=== PATIENT | female | born 1975 | race Caucasian/White ===

== ENCOUNTER 2018-11-30 16:01 | Emergency (ER) | payer OTHER ==
[2018-11-30] MEDS ORDERED: methylPREDNISolone Sodium Succinate 125 MG/2 ML SDV IM ONE (16:32)
[2018-11-30] MEDS ORDERED: Albuterol/Ipratropium 3.0-0.5 MG/3 ML Neb Soln NEB ONE (16:32)
--- NOTE | 2018-11-30 16:46 | EDM.PDOC ---
ED HPI GENERAL MEDICAL PROBLEM - General Chief Complaint: Respiratory Problem Stated Complaint: COUGH Time Seen by Provider: 11/30/18 16:11 Source of Information: Reports: Patient History Limitations: Reports: No Limitations - History of Present Illness INITIAL COMMENTS - FREE TEXT/NARRATIVE: HISTORY AND PHYSICAL: History of present illness: Patient is a 43-year-old female who presents to the ED today with concern of cough 1 week. Patient states she does feel as if she is been having fevers and chills off-and-on but has not checked a temperature at home. Patient states she does smoke about a pack a day and has so for 20-30 years. Patient states the cough has been dry and she has not coughed up any substances. Patient denies any other symptoms or concerns. Patient denies any health history. Patient denies fever, chills, chest pain, shortness of breath. Denies headache, neck stiff ness, change in vision, syncope, or near syncope. Denies nausea, vomiting, abdominal pain, diarrhea, constipation, or dysuria. Has not noted any blood in urine or stool. Patient has been eating and drinking appropriately. Review of systems: As per history of present illness and below otherwise all systems reviewed and negative. Past medical history: As per history of present illness and as reviewed below otherwise noncontributory. Surgical history: As per history of present illness and as reviewed below otherwise noncontributory. Social history: See social history for further information Family history: As per history of present illness and as reviewed below otherwise noncontributory. Physical exam: General: Patient is alert, oriented, and in no acute distress. Patient sitting comfortably on exam table. HEENT: Atraumatic, normocephalic, pupils equal and reactive bilaterally, negative for conjunctival pallor or scleral icterus, mucous membranes moist, TMs normal bilaterally, throat clear, neck supple, nontender, trachea midline. No drooling or trismus noted. No meningeal signs. No hot potato voice noted. Lungs: Diffuse wheezing to auscultation throughout all lung pena, breath sounds equal bilaterally, chest nontender. Dry cough elicited on exam. Heart: S1S2, regular rate and rhythm without overt murmur Abdomen: Soft, nondistended, nontender. Negative for masses or hepatosplenomegaly. Negative for costovertebral tenderness. Pelvis: Stable nontender. Genitourinary: Deferred. Rectal: Deferred. Skin: Intact, warm, dry. No lesions or rashes noted. Extremities: Atraumatic, negative for cords or calf pain. Neurovascular unremarkable. Neuro: Awake, alert, oriented. Cranial nerves II through XII unremarkable. Cerebellum unremarkable. Motor and sensory unremarkable throughout. Exam nonfocal. Notes: Discussed the importance for follow-up with a primary care provider. Voices understanding and is agreeable to plan of care. Denies any further questions or concerns at this time. Diagnostics: CBC, CMP, troponin, UA, EKG, chest x-ray, influenza, Therapeutics: DuoNeb, Solu-Medrol Prescription: Medrol dose pack, Proair inhaler, DuoNeb, Macrobid Impression: Cough with wheezing Urinary Tract infection Cigarette smoker Plan: 1. Take medication as prescribed. You can alternate ibuprofen and Tylenol as checked her for pain and discomfort 2. Follow-up with your primary care provider as discussed. Return to the ED as needed and as discussed. Definitive disposition and diagnosis as appropriate pending reevaluation and review of above. Head Pain Score (Numeric/FACES): 8 - Related Data Allergies Allergy/AdvReac Type Severity Reaction Status Date / Time No Known Allergies Allergy Verified 11/30/18 16:16 Home Meds: Home Meds . [No Known Home Meds] 11/30/18 [History] Past Medical History - Past Health History Medical/Surgical History: Denies Medical/Surgical History - Infectious Disease History Infectious Disease History: Reports: None Social & Family History - Family History Family Medical History: Noncontributory - Tobacco Use Smoking Status *Q: Current Every Day Smoker Years of Tobacco use: 30 Packs/Tins Daily: 0.5 - Caffeine Use Caffeine Use: Reports: Coffee - Recreational Drug Use Recreational Drug Use: Yes Recreational Drug Type: Reports: Marijuana/Hashish Recreational Drug Use Frequency: Socially ED ROS GENERAL - Review of Systems Review Of Systems: ROS reveals no pertinent complaints other than HPI. ED EXAM, GENERAL - Physical Exam Exam: See Below (See dictation) Course - Vital Signs Last Recorded V/S: Last Vital Signs Temp 97.9 F 11/30/18 16:17 Pulse 117 H 11/30/18 16:17 Resp 18 11/30/18 16:17 BP 148/106 H 11/30/18 16:17 Pulse Ox 98 11/30/18 16:17 - Orders/Labs/Meds Orders: Active Orders 24 hr Category Date Time Status EKG Documentation Completion [RC] STAT Care 11/30/18 16:32 Active RT Aerosol Therapy [RC] ASDIRECTED Care 11/30/18 16:32 Active CULTURE URINE [RM] Stat Lab 11/30/18 17:20 Received Labs: Laboratory Tests 11/30/18 11/30/18 11/30/18 Range/Units 17:00 17:00 17:20 WBC 10.79 (4.0-11.0) K/uL RBC 4.26 L (4.30-5.90) M/uL Hgb 13.1 (12.0-16.0) g/dL Hct 38.7 (36.0-46.0) % MCV 90.8 (80.0-98.0) fL MCH 30.8 (27.0-32.0) pg MCHC 33.9 (31.0-37.0) g/dL RDW Std Deviation 48.1 (28.0-62.0) fl RDW Coeff of Roscoe 15 (11.0-15.0) % Plt Count 354 (150-400) K/uL MPV 10.30 (7.40-12.00) fL Neut % (Auto) 67.2 (48.0-80.0) % Lymph % (Auto) 26.8 (16.0-40.0) % Dent % (Auto) 5.2 (0.0-15.0) % Eos % (Auto) 0.6 (0.0-7.0) % Baso % (Auto) 0.2 (0.0-1.5) % Neut # (Auto) 7.3 H (1.4-5.7) K/uL Lymph # (Auto) 2.9 H (0.6-2.4) K/uL Dent # (Auto) 0.6 (0.0-0.8) K/uL Eos # (Auto) 0.1 (0.0-0.7) K/uL Baso # (Auto) 0.0 (0.0-0.1) K/uL Nucleated RBC % 0.0 /100WBC Nucleated RBCs # 0 K/uL Sodium 141 (136-145) mmol/L Potassium 3.5 (3.5-5.1) mmol/L Chloride 106 (98-107) mmol/L Carbon Dioxide 21.5 (21.0-32.0) mmol/L BUN 11 (7.0-18.0) mg/dL Creatinine 0.7 (0.6-1.0) mg/dL Est Cr Clr Drug Dosing 98.01 mL/min Estimated GFR (MDRD) > 60.0 ml/min Glucose 116 H (74-106) mg/dL Calcium 9.0 (8.5-10.1) mg/dL Total Bilirubin 0.4 (0.2-1.0) mg/dL AST 12 L (15-37) IU/L ALT 18 (14-63) IU/L Alkaline Phosphatase 83 (46-116) U/L Troponin I < 0.050 (0.000-0.056) ng/mL Total Protein 7.9 (6.4-8.2) g/dL Albumin 3.4 (3.4-5.0) g/dL Globulin 4.5 H (2.6-4.0) g/dL Albumin/Globulin Ratio 0.8 L (0.9-1.6) Urine Color YELLOW Urine Appearance HAZY Urine pH 5.5 (5.0-8.0) Ur Specific Cades >= 1.030 (1.001-1.035) Urine Protein TRACE H (NEGATIVE) mg/dL Urine Glucose (UA) NEGATIVE (NEGATIVE) mg/dL Urine Ketones 15 H (NEGATIVE) mg/dL Urine Occult Blood NEGATIVE (NEGATIVE) Urine Nitrite NEGATIVE (NEGATIVE) Urine Bilirubin SMALL H (NEGATIVE) Urine Ictotest NEGATIVE Urine Urobilinogen 0.2 (<2.0) EU/dL Ur Leukocyte Esterase TRACE H (NEGATIVE) Urine RBC 0-2 (0-2/HPF) Urine WBC 8-10 (0-5/HPF) Ur Epithelial Cells MANY (NONE-FEW) Calcium Oxalate Crystal FEW (NEGATIVE) Urine Bacteria FEW (NEGATIVE) Urine Mucus MODERATE (NONE-MOD) Meds: Medications Discontinued Medications Generic Name Dose Route Start Last Admin Trade Name Freq PRN Reason Stop Dose Admin Albuterol/Ipratropium 3 ml 11/30/18 16:32 11/30/18 17:06 Duoneb 3.0-0.5 Mg/3 Ml NEB 11/30/18 16:33 3 ml ONETIME ONE Administration Methylprednisolone Sodium Succinate 125 mg 11/30/18 16:32 11/30/18 17:24 Solu-Medrol IM 11/30/18 16:33 125 mg ONETIME ONE Administration Departure - Departure Time of Disposition: 18:09 Disposition: Home, Self-Care 01 Clinical Impression: Cough, Wheezing, Cigarette smoker Urinary tract infection Qualifiers: Urinary tract infection type: acute cystitis Hematuria presence: with hematuria Qualified Code(s): N30.01 - Acute cystitis with hematuria - Discharge Information Referrals: PCP,None [Primary Care Provider] - Forms: ED Department Discharge Additional Instructions: The following information is given to patients seen in the emergency department who are being discharged to home. This information is to outline your options for follow-up care. We provide all patients seen in our emergency department with a follow-up referral. The need for follow-up, as well as the timing and circumstances, are variable depending upon the specifics of your emergency department visit. If you don't have a primary care physician on staff, we will provide you with a referral. We always advise you to contact your personal physician following an emergency department visit to inform them of the circumstance of the visit and for follow-up with them and/or the need for any referrals to a consulting specialist. The emergency department will also refer you to a specialist when appropriate. This referral assures that you have the opportunity for follow-up care with a specialist. All of these measure are taken in an effort to provide you with optimal care, which includes your follow-up. Under all circumstances we always encourage you to contact your private physician who remains a resource for coordinating your care. When calling for follow-up care, please make the office aware that this follow-up is from your recent emergency room visit. If for any reason you are refused follow-up, please contact the [facility] Emergency Department at and asked to speak to the emergency department charge nurse. [facility] [address] [place] [id number] [address] 1. Take medication as prescribed. You can alternate ibuprofen and Tylenol as checked her for pain and discomfort 2. Follow-up with your primary care provider as discussed. Return to the ED as needed and as discussed. - My Orders Last 24 Hours: My Active Orders 11/30/18 16:32 EKG Documentation Completion [RC] STAT RT Aerosol Therapy [RC] ASDIRECTED 11/30/18 17:20 CULTURE URINE [RM] Stat - Assessment/Plan Last 24 Hours: My Active Orders 11/30/18 16:32 EKG Documentation Completion [RC] STAT RT Aerosol Therapy [RC] ASDIRECTED 11/30/18 17:20 CULTURE URINE [RM] Stat
--- NOTE | 2018-11-30 17:26 | CR ---
INDICATION: Cough x 1 wk, h/o smoking. TECHNIQUE: Chest 2 views. COMPARISON: None. FINDINGS: Cardiovascular and mediastinum: Heart size and vasculature are normal in caliber and appearance. Mediastinum is within normal limits. Lungs and pleural spaces: Lungs are clear. No sign of infiltrate or mass. No sign of pleural effusion. No pneumothorax. Bones and soft tissues: No significant findings. IMPRESSION: Unremarkable chest. Dictated by: Robbie Doherty MD @ 11/30/2018 17:24:20 (Electronically Signed)
[2018-11-30 17:56] LABS: BLOOD UREA NITROGEN,BUN 11 mg/dL (7.0-18.0); CARBON DIOXIDE,CO2 21.5 mmol/L (21.0-32.0); CHLORIDE,CL 106 mmol/L (98-107); GLUCOSE RANDOM 116 mg/dL (74-106); POTASSIUM,K 3.5 mmol/L (3.5-5.1); SODIUM,NA 141 mmol/L (136-145)
== END 2018-11-30 18:30 | disposition home or self-care (01) ==
LOC: MW.ED 16:01
DX: R06.2 Wheezing (principal); R05 Cough; N39.0 Urinary tract infection, site not specified; F17.210 Nicotine dependence, cigarettes, uncomplicated
CPT/HCPCS: 36415; 71046; 80053; 81001; 84484; 85025; 87086; 87804; 93005; 94640; 96372; 99284; J2930; J7620-GY

== ENCOUNTER 2019-06-10 02:59 | Emergency (ER) | payer OTHER ==
--- NOTE | 2019-06-10 03:12 | EDM.PDOC ---
ED [facility] GENERAL MEDICAL PROBLEM - General Chief Complaint: Lower Extremity Injury/Pain Stated Complaint: RT LEG HURTS Time Seen by Provider: 06/10/19 03:10 Source of Information: Reports: Patient History Limitations: Reports: No Limitations - History of Present Illness INITIAL COMMENTS - FREE TEXT/NARRATIVE: Patient is 44-year-old female with past medical history of smoking presenting with a chief complaint of left hip pain. Patient states that she was wrestling with her significant other prior to arrival when she felt a pop and had immediate pain to her left hip. Pain does not radiate. Pain is made worse with attempts to move. Patient received 100 mcg of fentanyl from EMS without any improvement in pain. Patient denies any other injuries. Patient denies any drugs or alcohol tonight. Pmhx: None Pshx: None Family Hx: noncontributory Smoking history? Yes Etoh use? none Drug use? none Conference review of systems performed and otherwise negative as per HPI I have reviewed the triage vital signs Const: Well nourished, well developed, appears stated age Eyes: PERRL, no conjunctival injection HENT: NCAT, Neck supple without meningismus CV: RRR, Warm, well-perfused extremities RESP: CTAB, Unlabored respiratory effort GI: soft, non-tender, non-distended, no masses MSK: Left lower extremity is externally rotated and slightly shortened. No gross deformities appreciated Skin: Warm, dry. No rashes Neuro: Alert, pony edger II-XII grossly intact. Sensation and motor function of extremities grossly intact. Psych: Appropriate mood and affect Assessment and plan: Patient 44-year-old female presenting with left-sided hip pain status post injury. On x-ray patient had evidence of an anterior hip dislocation. No evidence of fracture on x-ray. No other injuries noted on physical exam. Patient was neurovascularly intact pre-and post procedure. Patient had successful reduction of her hip in the emergency department. Patient was placed in a knee immobilizer and given orthopedic follow-up. No immediate complications. All questions addressed and answered. Patient agrees with plan. Procedure note: Dislocation reduction Indication: Hip dislocation Senior Electronics Engineer: Dr. Melton Location: Left hip Indications, risks, and benefits explained to patient and informed consent obtained. Pre-procedure neurovascular exam: Intact A time out was performed. Procedural sedation was used and once patient was appropriately sedated, the patient was placed in the supine position. Patient's hip was flexed to 90 degrees and abduction force was applied until hip was successfully reduced. Palpable clunk was felt on first attempt. Patient was placed immediately in a knee immobilizer Post procedure neurovascular exam: Intact The patient tolerated the procedure well with no immediate complications Left Hip Pain Score (Numeric/FACES): 10 - Related Data Allergies Allergy/AdvReac Type Severity Reaction Status Date / Time No Known Allergies Allergy Verified 06/10/19 03:09 Home Meds: Home Meds . [No Known Home Meds] 11/30/18 [History] Past Medical History - Past Health History Medical/Surgical History: Denies Medical/Surgical History - Infectious Disease History Infectious Disease History: Reports: None Social & Family History - Family History Family Medical History: Noncontributory - Tobacco Use Smoking Status *Q: Current Every Day Smoker Years of Tobacco use: 25 Packs/Tins Daily: 1 - Caffeine Use Caffeine Use: Reports: Coffee - Recreational Drug Use Recreational Drug Use: Yes Drug Use in Last 12 Months: Yes Recreational Drug Type: Reports: Marijuana/Hashish Recreational Drug Use Frequency: Socially Review of Systems - Review of Systems Review Of Systems: See Below ED EXAM, GENERAL - Physical Exam Exam: See Below Course - Vital Signs Last Recorded V/S: Last Vital Signs Temp 36.0 C L 06/10/19 03:07 Pulse 69 06/10/19 03:59 Resp 17 06/10/19 03:59 BP 142/93 H 06/10/19 03:59 Pulse Ox 100 06/10/19 03:59 - Orders/Labs/Meds Orders: Active Orders 24 hr Category Date Time Status Immobilizer [RC] ASDIRECTED Care 06/10/19 04:19 Active Hip Min 1V Lt [CR] Stat Exams 06/10/19 04:18 Taken Hip Min 2V or 3V w Pelvis Lt [CR] Stat Exams 06/10/19 03:09 Taken DME for Prescription [COMM] Stat Oth 06/10/19 04:42 Ordered Meds: Medications Discontinued Medications Generic Name Dose Route Start Last Admin Trade Name Freq PRN Reason Stop Dose Admin Ketorolac Tromethamine 15 mg 06/10/19 03:40 06/10/19 03:47 Toradol IVPUSH 06/10/19 03:41 15 mg ONETIME ONE Administration Morphine Sulfate 6 mg 06/10/19 03:40 06/10/19 03:48 Morphine IVPUSH 06/10/19 03:41 6 mg ONETIME ONE Administration Ondansetron HCl 4 mg 06/10/19 03:40 06/10/19 03:45 Zofran IVPUSH 06/10/19 03:41 4 mg ONETIME ONE Administration Propofol Confirm 06/10/19 04:05 Diprivan 20 Ml Administered 06/10/19 04:06 Dose 200 mg .ROUTE .STK-MED ONE Departure - Departure Time of Disposition: 04:43 Disposition: Home, Self-Care 01 Clinical Impression: Hip dislocation, left - Discharge Information Instructions: Hip Dislocation Referrals: PCP,None [Primary Care Provider] - Forms: ED Department Discharge Additional Instructions: The following information is given to patients seen in the emergency department who are being discharged to home. This information is to outline your options for follow-up care. We provide all patients seen in our emergency department with a follow-up referral. The need for follow-up, as well as the timing and circumstances, are variable depending upon the specifics of your emergency department visit. If you don't have a primary care physician on staff, we will provide you with a referral. We always advise you to contact your personal physician following an emergency department visit to inform them of the circumstance of the visit and for follow-up with them and/or the need for any referrals to a consulting specialist. The emergency department will also refer you to a specialist when appropriate. This referral assures that you have the opportunity for follow-up care with a specialist. All of these measure are taken in an effort to provide you with optimal care, which includes your follow-up. Under all circumstances we always encourage you to contact your private physician who remains a resource for coordinating your care. When calling for follow-up care, please make the office aware that this follow-up is from your recent emergency room visit. If for any reason you are refused follow-up, please contact the [facility] Emergency Department at and asked to speak to the emergency department charge nurse. Sepsis Event Note - Evaluation Sepsis Screening Result: No Definite Risk - Focused Exam Vital Signs: Vital Signs Temp Pulse Resp BP Pulse Ox 06/10/19 03:59 69 17 142/93 H 100 06/10/19 03:07 36.0 C L 79 26 H 145/97 H 100 Date Exam was Performed: 06/10/19 Time Exam was Performed: 04:43 - My Orders Last 24 Hours: My Active Orders 06/10/19 03:09 Hip Min 2V or 3V w Pelvis Lt [CR] Stat 06/10/19 04:18 Hip Min 1V Lt [CR] Stat 06/10/19 04:19 Immobilizer [RC] ASDIRECTED 06/10/19 04:42 DME for Prescription [COMM] Stat - Assessment/Plan Last 24 Hours: My Active Orders 06/10/19 03:09 Hip Min 2V or 3V w Pelvis Lt [CR] Stat 06/10/19 04:18 Hip Min 1V Lt [CR] Stat 06/10/19 04:19 Immobilizer [RC] ASDIRECTED 06/10/19 04:42 DME for Prescription [COMM] Stat
[2019-06-10] MEDS ORDERED: Morphine 10 MG/ML Syringe IVPUSH ONE (03:40)
[2019-06-10] MEDS ORDERED: Ketorolac 30 MG/ML SDV IVPUSH ONE (03:40)
[2019-06-10] MEDS ORDERED: Ondansetron 4 MG/2 ML SDV IVPUSH ONE (03:40)
[2019-06-10] MEDS ORDERED: Propofol 200 MG/20 ML SDV ONE (04:05)
--- NOTE | 2019-06-10 04:28 | PCM.PREANE ---
Preanesthetic Assessment - Anesthesia/Transfusion/Family Hx Anesthesia History: Prior Anesthesia Without Reaction Family History of Anesthesia Reaction: No - Physical Assessment NPO Status Date: 06/09/19 NPO Status Time: 19:00 Vital Signs: Last Vital Signs Temp 36.0 C L 06/10/19 03:07 Pulse 69 06/10/19 03:59 Resp 17 06/10/19 03:59 BP 142/93 H 06/10/19 03:59 Pulse Ox 100 06/10/19 03:59 Height: 1.68 m Weight: 99.79 kg ASA Class: 1E - Allergies Allergies/Adverse Reactions: Allergies Allergy/AdvReac Type Severity Reaction Status Date / Time No Known Allergies Allergy Verified 06/10/19 03:09 - Acknowledgements Anesthesia Type Planned: MAC Pt an Appropriate Candidate for the Planned Anesthesia: Yes Alternatives and Risks of Anesthesia Discussed w Pt/Guardian: Yes Pt/Guardian Understands and Agrees with Anesthesia Plan: Yes Additional Comments: Plan conscious sedation in ER to reduce a dislocated left hip PreAnesthesia Questionnaire - Past Health History Medical/Surgical History: Denies Medical/Surgical History Dermatologic History: Reports: Other (See Below) Other Dermatologic History: infection in L breast- had surgery for - Infectious Disease History Infectious Disease History: Reports: None - SUBSTANCE USE Smoking Status *Q: Current Every Day Smoker Tobacco Use Within Last Twelve Months: Cigarettes Recreational Drug Use History: Yes Recreational Drug Type: Reports: Marijuana/Hashish - HOME MEDS Home Medications: Home Meds . [No Known Home Meds] 11/30/18 [History] - CURRENT (IN HOUSE) MEDS Current Meds: Current Medications Discontinued Medications Ketorolac Tromethamine (Toradol) 15 mg IVPUSH ONETIME ONE Stop: 06/10/19 03:41 Last Admin: 06/10/19 03:47 Dose: 15 mg Morphine Sulfate (Morphine) 6 mg IVPUSH ONETIME ONE Stop: 06/10/19 03:41 Last Admin: 06/10/19 03:48 Dose: 6 mg Ondansetron HCl (Zofran) 4 mg IVPUSH ONETIME ONE Stop: 06/10/19 03:41 Last Admin: 06/10/19 03:45 Dose: 4 mg Propofol (Diprivan 20 Ml) Confirm Administered Dose 200 mg .ROUTE .STK-MED ONE Stop: 06/10/19 04:06
--- NOTE | 2019-06-10 04:30 | PCM.PRNOTE ---
- Free Text/Narrative Note: Anes Note I was called to ER to provide conscious sedation for dislocated left hip. O2 nasak cannula on. VS stable. 100 mg propofol given in slow divided doses to achieve a state of conscious sedation. Hip was easily reduced by Er physician single attempt. Procedure and anesthesia tolerated very well by patient. Patient was awake and stable when anesthesia was over. Time with patient [id number] Moustapha Moore CRNA
--- NOTE | 2019-06-10 07:37 | CR ---
Indication: Pain after fall Technique: Frontal view pelvis frontal and lateral left hip Comparison: None Findings: Bones: There is an anterior dislocation of the left femur. No fracture identified. Joint spaces: Unremarkable. Soft tissues: Unremarkable. Impression: Anterior dislocation of the left femur. No fracture identified. Dictated by Chrissy Garcia MD @ Jun 10 2019 4:04AM Signed by Dr. Chrissy Garcia @ Jun 10 2019 4:04AM
--- NOTE | 2019-06-10 08:48 | CR ---
EXAM DATE: 06/10/19 PATIENT'S AGE: 44 Patient: NADINE ALLEN Facility: [facility] Site . Site : [id number] Study: XRay-Hip Left hip-06/10/2019 4:36:08 AM Ordering Physician: sol Final Report: Indication: Post reduction Technique: Frontal view left hip Comparison: Same date at 3:26 a.m. Findings/impression: Interval reduction of a left hip dislocation. Alignment appears anatomic on this frontal projection. No fracture identified. Dictated by Chrissy Garcia MD @ Jun 10 2019 4:46AM Signed by: Chrissy Garcia MD @06/10/2019 4:46:27 AM (Electronic Signature) Report Signed by Proxy. MAXIMO
== END 2019-06-10 05:07 | disposition home or self-care (01) ==
LOC: MW.ED 02:59
DX: S73.005A Unspecified dislocation of left hip, initial encounter (principal); F17.210 Nicotine dependence, cigarettes, uncomplicated; W51.XXXA Accidental striking against or bumped into by another person, initial encounter; Y93.72 Activity, wrestling
CPT/HCPCS: 27250; 73501; 73502; 99284; J1885; J2270; J2405; 01210; 99283

== ENCOUNTER 2021-05-09 09:32 | Emergency (ER) | payer OTHER ==
[2021-05-09] MEDS ORDERED: Orphenadrine 60 MG/2 ML Inj IM ONE (10:20)
[2021-05-09] MEDS ORDERED: Ketorolac 60 MG/2 ML SDV IM ONE (10:20)
[2021-05-09] MEDS ORDERED: Acetaminophen/oxyCODONE 325-10 MG Tab PO ONE (10:21)
== END 2021-05-09 11:44 | disposition home or self-care (01) ==
LOC: MW.ED 09:32
DX: M54.50 Low back pain, unspecified (principal)
CPT/HCPCS: 72131; 96372; 99283; A9270; J1885; J2360